=== PATIENT | female | born 1955 | race Caucasian/White ===

== ENCOUNTER 2022-09-30 12:59 | Emergency (ER) | payer MEDICARE, OTHER, SELFPAY ==
--- NOTE | ~2022-09-30 | CT_ITS ---
EXAMINATION: CT ABDOMEN AND PELVIS WITH CONTRAST CLINICAL INFORMATION: Abdominal pain COMPARISON: None available. TECHNIQUE: Multidetector volumetric images were obtained from the superior aspect of the liver through the pubic symphysis following administration 85 mL of Omnipaque 350 intravenous contrast. Sagittal and coronal reformatted images were obtained on the technologist's workstation. Oral contrast: No This CT examination was performed using dose optimization techniques as appropriate, variously including the following: *Automated exposure control *Adjustment of mA and/or kV according to patient size (this includes techniques or standardized protocols for targeted exams where dose is matched to indication/reason for exam; i.e. extremities or head) *Use of iterative reconstruction technique DLP: 382 mGy-cm FINDINGS: LUNG BASES: Unremarkable. ABDOMINAL AND PELVIC WALL: Diastases of the rectus abdominis musculature with a tiny superimposed fat-containing umbilical hernia. LIVER AND BILIARY TREE: Few subcentimeter hepatic hypodensities too small to characterize. No intra or extrahepatic biliary duct dilatation. GALLBLADDER: Unremarkable. PANCREAS: Tiny 4 mm fluid attenuation lesion in the pancreatic neck and a 2.2 cm fluid attenuation lesion exophytic off the tail of the pancreas. No pancreatic duct dilatation or enhancing components. SPLEEN: Unremarkable. ADRENAL GLANDS: Unremarkable. KIDNEYS AND URETERS: Unremarkable. GASTROINTESTINAL TRACT: Colonic diverticulosis without evidence of diverticulitis. Normal appendix. VASCULAR: Unremarkable. LYMPH NODES/PERITONEUM: No lymphadenopathy. FREE FLUID: None. BLADDER: Unremarkable. PELVIC VISCERA: Unremarkable. OSSEOUS STRUCTURES: Unremarkable. CT/CT abdomen pelvis w IV con IMPRESSION: 1. No acute findings to explain symptoms of abdominal pain. 2. Tiny 4 mm fluid attenuation lesion in the pancreatic neck and a 2.2 cm fluid attenuation lesion exophytic off the tail of the pancreas. No pancreatic duct dilatation or enhancing components. Recommend further characterization with MR abdomen with and without contrast. 3. Diastases of the rectus abdominis musculature with a tiny superimposed fat-containing umbilical hernia.
--- NOTE | 2022-09-30 13:12 | ED.GENADULT ---
HPI - General Adult General Chief complaint: Abdominal Pain Stated complaint: nausea/ adb pain/ back pain Time Seen by Provider: 09/30/22 16:38 Source: patient Mode of arrival: ambulatory Limitations: no limitations History of Present Illness HPI narrative: 66 year old female presents from her PCP's office for abdominal pain vomiting for the past three days. She denies any diarrhea. She has had no vomiting today. She states she was sent to get fluids and a CT. She had three C section but no other surgeries. No fever chills cough. She states she wants to get to the bottom of what is going on. She later after physical exam and explaining the plan states she feels a twisting in his abdomen and Onset (ago): day(s) Related Data Allergies Allergy/AdvReac Type Severity Reaction Status Date / Time citalopram [From CELEXA] Allergy Unknown RASH Verified 09/30/22 13:12 Review of Systems Review of Systems: Review of systems: General: Patient denies any fever chills recent illness or falls Musculoskeletal: Denies back pain or body aches or other injuries HEENT: denies headache, runny nose, ear pain Respiratory: denies shortness of breath, cough Cardiovascular: no chest pain or palpitations : denies dysuria, frequency Abdomen: no nausea vomiting denies abdominal pain Extremities: no swelling, no pain Skin: no diaphoresis Yes all other systems are reviewed and are negative PMFSH Social History Social History Advance Directives: No Advance Directives Information Provided: Yes Physical Exam ED Vital Signs: Vital Signs - 24 hr 09/30/22 13:13 09/30/22 16:53 Temperature 97 F Pulse Rate 94 79 Respiratory Rate 16 16 Blood Pressure 114/72 144/68 H Pulse Oximetry 95 96 Oxygen Delivery Method Room Air BMI result Body Mass Index 25.8 General: Well-appearing well-nourished in no signs of distress HEENT: Normocephalic atraumatic Neck: No signs of JVD, no masses no tenderness or lymphadenopathy Cardiovascular: Regular rate and rhythm Respiratory: Clear to auscultation bilaterally Abdomen: Soft nontender no masses Extremities: Normal pedal pulses no signs of edema Skin: Dry warm no rashes Back: No tenderness full ROM Course Course Course Narrative: RME- 66-year-old female presents for evaluation of lower abdominal pain, nausea vomiting. Plan for labs and a UA. She is well-appearing injury a Reevaluation(s) Reevaluation #1: 1850 I explained the of pancreatic cyst and the small umbilical hernia and need for follow up. I don't have a reason for her symptoms today and she didn't want a script for zofran. I will send home. Medications Administered Discontinued Medications Generic Name Dose Route Start Last Admin Trade Name Vamsi PRN Reason Stop Dose Admin Sodium Chloride 1,000 mls @ 999 mls/hr 09/30/22 17:00 09/30/22 18:09 Ns IV 09/30/22 18:00 Infused .Q1H1M ELVIN Infusion Iohexol 100 ml 09/30/22 17:07 09/30/22 17:07 Iohexol 350 Mg/Ml 100 Ml Infus..Btl IV 09/30/22 17:08 85 ml ONCE ONE Administration Ondansetron HCl 4 mg 09/30/22 16:51 09/30/22 17:09 Ondansetron Hcl 4 Mg/2 Ml Vial IVPUSH 09/30/22 16:52 Not Given ONCE ONE Medical Decision Making Medical Decision Making [facility] Narrative: 66 year old female with no more abdominal pain and vomiting that was going on previously. She states she has to get fluids and a CT scan. Patient has a non concerning exam with normal labs since she has been waiting. I explained there is no need for imaging and I could send her home with harpreet for nausea. She states she hasn't vomited today and feels that this is something else and has to know. I again explained a CT would not tell her what is going on. She was adamant that a cT neeeded to be performed cause her doctor said melaniemaged needed one. I ordered a CT Differential Diagnosis Differential Diagnoses: The differential diagnosis associated with the presentation includes Vomiting dehydration abdominal pain unlikely concerning for intra abdominal surgical issue. Admission/Observation Consideration of admission/observation: Escalation of care including admission/observation considered Negative CT and labs admission is not warranted. Lab Data [facility] Lab Attestation statement: I reviewed the patient's lab results. 09/30/22 13:54 09/30/22 13:54 Labs: Lab Results 09/30/22 09/30/22 09/30/22 Range/Units 13:54 13:54 16:45 WBC 6.8 (4.8-10.8) X10*3/uL RBC 4.83 (4.20-5.50) X10*6/uL Hgb 14.1 (12.0-16.0) g/dl Hct 42.3 (37.0-47.0) % MCV 87.6 (80.0-98.0) fL MCH 29.2 (27.0-33.0) pg MCHC 33.3 (31.0-35.0) g/dl RDW 13.3 (11.0-16.0) % Plt Count 243 (160-400) X10*3/uL MPV 11.1 (9.4-12.3) fL Immature Gran % (Auto) 0.1 (0.0-0.4) % Neut % (Auto) 51.0 (45-73) % Lymph % (Auto) 35.7 (20-40) % [place] % (Auto) 10.2 (2-11) % Eos % (Auto) 2.6 (0-4) % Baso % (Auto) 0.4 (0-2) % Lymph # (Auto) 2.4 (1.2-4.9) X10*3/uL [place] # (Auto) 0.7 (0.1-1.2) X10*3/uL Eos # (Auto) 0.2 (0.0-0.4) X10*3/uL Baso # (Auto) 0.0 (0.0-0.2) X10*3/uL Abs Immat Gran (auto) 0.01 (0.00-0.03) X10*3/uL Absolute Neuts (auto) 3.5 (2.0-8.3) x10*3/uL Absolute Nucleated RBC 0.000 (0.0-0.012) X10*3/uL Nucleated RBC % (auto) 0.0 (0.0-0.2) /100WBC Sodium 142 (135-145) mmol/L Potassium 3.7 (3.3-5.1) mmol/L Chloride 104 (96-108) mmol/L Carbon Dioxide 29 (22-29) mmol/L Anion Gap 13 (12-20) BUN 23 H (9-16) mg/dL Creatinine 0.87 (0.5-1.4) mg/dL Estim Creat Clear Calc 50.7 Estimated GFR > 60 Random Glucose 125 H (60-115) mg/dL Calcium 10.0 (8.4-10.2) mg/dL Total Bilirubin 0.8 (0.0-1.0) mg/dL AST 49 H (5-31) U/L ALT 45 H (0-31) U/L Alkaline Phosphatase 95 (39-117) U/L Total Protein 7.1 (6.5-8.0) g/dL Albumin 4.6 (3.5-5.0) g/dL Lipase 35 (8-78) U/L Urine Color Yellow Urine Appearance Clear Urine pH 5.5 (5.0-9.0) Ur Specific Sacul 1.010 (1.005-1.025) Urine Protein Negative (Neg-Trace) mg/dL Urine Glucose (UA) Negative (Negative) mg/dL Urine Ketones Negative (Negative) mg/dL Urine Blood Negative (Negative) Urine Nitrite Negative (Negative) Ur Leukocyte Esterase Trace H (Negative) Urine RBC 0-2 (0-2) /HPF Urine WBC 0-5 (0-5) /HPF Ur Squamous Epith Cells 3-5 (0-2) /HPF Urine Bacteria None Seen (None Seen) Hyaline Casts 0-2 (0-2) /LPF Radiology Impression Discussion of test interpretation with radiology: I have reviewed the radiologist's reading. External Record Review External record reviewed: Inpatient record Discharge Plan Discharge Clinical Impression: Abdominal pain Patient Disposition: Home, Self-Care Instructions: Abdominal Pain (ED) Additional Instructions: You were seen today for vomiting and abdominal pain. You had labs and CT performed which showed non emergent findings of pancreatic cyst that you need to talk to your doctor about for further imaging. You also have a small hernia around your belly button. Please call and follow up with your doctor.
[2022-09-30 13:13] VITALS: BP 114/72; PULSE 94; RESP 16; TEMP 36.1; O2SAT 95; BMI 25.8
--- OUTSIDE RECORDS SUMMARY | 2022-09-30 13:33 | XMS_ITS | Continuity of Care Document ---
Author Name Unknown Organization [facility] ter Address [address] [place] [id number]- Care Team Providers Care Optical Laboratory Manager Name Role Phone Malini AMAYA, Esthela Goodwin Primary Care Physician Encounter [facility] [place] Date(s): 08/07/20 - 10/04/[address] [address]- Attending Physician: Stefan Snowden MD Admitting Physician: Stefan Snowden MD Referring Physician: Stefan Snowden MD Allergies, Adverse Reactions, Alerts Substance Reaction Severity Status Celexa rash Active Immunizations Given and Recorded Vaccine Date Status Refusal Reason influenza virus vaccine, inactivated 01/18/19 Give n influenza virus vaccine, inactivated 1 02/04/17 Re corded influenza virus vaccine, inactivated 2 02/08/16 Re corded influenza virus vaccine, inactivated 03/14/14 Give n influenza virus vaccine, inactivated 03/06/13 Give n tetanus/diphtheria/pertussis, acel(Tdap) 05/25/13 Given Pneumococcal Vaccine (oldterm) 08/17/11 Given FluLaval (oldterm) 02/06/09 Given Hepatitis B Vaccine (old term) 07/06/05 Given 1Location History: work 2Location History: work Medications Alcohol Wipes See Instructions, # 1 box, Refills 5, Tot. Refills 5, Maintenance, use to clean skin before testingblood glucose dx 250.00, 08/20/11 11:23:44 Start Date: 08/20/11 Status: Ordered aspirin 81 mg oral tablet = 81 mg, By Mouth, Daily, # 300 tablet, 0 Refills, Maintenance, 08/05/16 15:13:09, Tablet Start Date: 08/05/16 Status: Ordered Freestyle Glucose Meter See Instructions, # 1 each, Maintenance, use to test blood glucose once daily dx 250.00, 08/28/11 15:04:45 Start Date: 08/28/11 Status: Ordered Freestyle Lancets See Instructions, # 50 each, Refills 5, Tot. Refills 5, Maintenance, [place] [address], 08/28/11 15:04:18 Start Date: 08/28/11 Status: Ordered Freestyle Lite Test Strips See Instructions, # 50 strip(s), Refills 5, Tot. Refills 5, Maintenance, use as directed to test blood sugar 1 x daily dx - E11.9, 09/09/16 14:48:16, Compound Start Date: 09/09/16 Status: Ordered Lancets See Instructions, # 1 box, Refills 1, Tot. Refills 1, Maintenance, DX:E11.9 Test Blood Sugars Daily, 09/09/16 14:59:12, Free Style Lancets, Compound Start Date: 09/09/16 Status: Ordered Problem List Condition Effective Dates Status Health Status Inform ant Allergic rhinitis(Confirmed) Active Sleep-related hypoventilation(Confirmed) Active Diabetes mellitus - adult onset(Confirmed) 1, 2, 3 08/17/11 Active Disorder of iron metabolism(Confirmed) Active Fatty liver(Confirmed) 4, 5, 6 06/10/09 Active FH: Cardiovascular disease(Confirmed) Active FH: Diabetes mellitus(Confirmed) Active Chronic GERD(Confirmed) Active Hyperaldosteronism(Confirmed) 7, 8 Active Hyperlipidemia(Confirmed) 04/16/10 Active Hypersomnia(Confirmed) Active Hypertension(Confirmed) 9, 10 03/28/07 Active Hypertriglyceridemia(Confirmed) 11 Active Hypothyroidism(Confirmed) Active Irritable bowel syndrome(Confirmed) Active Major depression(Confirmed) 12 Active Microscopic hematuria(Confirmed) 13 07/24/09 Active Nephrolithiasis(Confirmed) Active Severe obstructive sleep apnea-hypopnea syndrome(Confirmed) 14, 15 Active Osteoporosis(Confirmed) 04/26/17 Active Overweight(Confirmed) Active Sleep apnea(Confirmed) 16, 17, 18 2009 Active Urinary incontinence(Confirmed) 19 Active Uterine fibroids(Confirmed) Active Vitamin D deficiency(Confirmed) Active 1stopped Trulicity due to cost once got on medicare 2[facility] 3Metformin 1g bid casued too much gas. tolerating 500mg bid 4NAFLD fibrosis score (-0.413) and FIBT-4 score (1.94) are both indeterminate 5Negative hepatitis and iron studies 2013. 6Seen on CT 7Primary Hyperaldo. Placed on aldactone and rest of BP meds needed to be discontinued. 8Following with Renal 9referred to Dr godfrey 10Hypokalemia and nocturia with HCTZ 11over 800 and gemfibrozil started 12Failed trails off meds a few times 13Seen by Dr Castaneda at [facility] 14Bilevel 12/04 15on Bipap and folllowed at [facility] 16followed by sleep medicine and bipap ordered after trial 17retested and has severe apnea and cpap trial ordered 18Mild. had cpap for awhile but returned becuase she was not using 19Seen by Dr Snowden Social History Social History Type Response Smoking Status Former smoker; Other : quit smoking July 26, 1999; Total pack years: 30; Started at age: 13; entered on: 04/02/14 Sex
--- OUTSIDE RECORDS SUMMARY | 2022-09-30 13:33 | XMS_ITS | Continuity of Care Document ---
Author Name Unknown Organization [facility] ter Address [address] [place] [id number]- Care Team Providers Care Bottom Finisher Name Role Phone Esthela Nayak MD Primary Care Physician [place] [facility] [place] 10/04/[address] [address] Attending Physician: Esthela Nayak MD Admitting Physician: Esthela Nayak MD Referring Physician: Esthela Nayak MD Allergies, Adverse Reactions, Alerts Substance Reaction [...] use [place] [address], 08/28/11 15:04:18 Start Date: 08/28/11 Status: Ordered [...] to cost once got on medicare 2[facility]iz [facility] 3Metformin 1g bid casued too [...] few times 13Seen by Dr Castaneda at [facility] 14Bilevel 12/04 15on Bipap and folllowed at [facility] Sleep Medicine 16followed by sleep medicine and [...]
--- OUTSIDE RECORDS SUMMARY | 2022-09-30 13:33 | XMS_ITS | Continuity of Care Document ---
Author Name Unknown Organization [facility] [place] Address [address] [place] [address]- Care Team Providers Care Tower Helper Name Role Phone Esthela Nayak MD Primary Care Physician Encounter 12/07/19 - 12/14/19 [facility] [address], [address] [place] [address]- [phone] Attending Physician: Esthela Nayak MD Admitting Physician: [...] [place] [id number], 08/28/11 15:04:18 Start Date: 08/28/11 Status: Ordered [...] Active Diabetes mellitus - adult onset(Confirmed) 1, 2 08/17/11 Active Disorder of iron metabolism(Confirmed) Active Fatty liver(Confirmed) 3, 4, 5 06/10/09 Active FH: Cardiovascular disease(Confirmed) Active FH: Diabetes mellitus(Confirmed) Active Chronic GERD(Confirmed) Active Hyperaldosteronism(Confirmed) 6, 7 Active Hyperlipidemia(Confirmed) 04/16/10 Active Hypersomnia(Confirmed) Active Hypertension(Confirmed) 8, 9 03/28/07 Active Hypertriglyceridemia(Confirmed) 10 Active Hypothyroidism(Confirmed) Active Irritable bowel syndrome(Confirmed) Active Major depression(Confirmed) 11 Active Microscopic hematuria(Confirmed) 12 07/24/09 Active Nephrolithiasis(Confirmed) Active Severe obstructive sleep apnea-hypopnea syndrome(Confirmed) 13, 14 Active Osteoporosis(Confirmed) 04/26/17 Active Overweight(Confirmed) Active Sleep apnea(Confirmed) 15, 16, 17 2009 Active Urinary incontinence(Confirmed) 18 Active Uterine fibroids(Confirmed) Active Vitamin D deficiency(Confirmed) Active 1[facility] 2Metformin 1g bid casued too much gas. tolerating 500mg bid 3NAFLD fibrosis score (-0.413) and FIBT-4 score (1.94) are both indeterminate 4Negative hepatitis and iron studies 2013. 5Seen on CT 6Primary Hyperaldo. Placed on aldactone and rest of BP meds needed to be discontinued. 7Following with Renal 8referred to Dr godfrey 9Hypokalemia and nocturia with HCTZ 10over 800 and gemfibrozil started 11Failed trails off meds a few times 12Seen by Dr Castaneda at [facility] 13Bilevel 12/04 14on Bipap and folllowed at [facility] 15followed by sleep medicine and bipap ordered after trial 16retested and has severe apnea and cpap trial ordered 17Mild. had cpap for awhile but returned becuase she was not using 18Seen by Dr Snowden Social History Social History Type Response Smoking Status Former smoker; Other : quit smoking July 26, 1999; Total pack years: 30; Started at age: 13; entered on: 04/02/14 Sex
[2022-09-30 14:12] LABS: MANUAL DIFF FLAG NO
[2022-09-30 14:14] LABS: Basophils Percent Auto 0.4 % (0-2); Eosinophils Absolute Auto 0.2 X10*3/uL (0.0-0.4); Eosinophils Percent Auto 2.6 % (0-4); Hematocrit 42.3 % (37.0-47.0); Hemoglobin 14.1 g/dl (12.0-16.0); Imm Gran Abs Auto 0.01 X10*3/uL (0.00-0.03); Imm Gran Pct Auto 0.1 % (0.0-0.4); Lymphocytes Absolute Auto 2.4 X10*3/uL (1.2-4.9); Lymphocytes Percent Auto 35.7 % (20-40); Mean Corpuscular HGB Conc 33.3 g/dl (31.0-35.0); Mean Corpuscular Hemoglobin 29.2 pg (27.0-33.0); Mean Corpuscular Volume 87.6 fL (80.0-98.0); Mean Platelet Volume 11.1 fL (9.4-12.3); Monocytes Absolute Auto 0.7 X10*3/uL (0.1-1.2); Monocytes Percent Auto 10.2 % (2-11); Neutrophils Absolute Auto 3.5 x10*3/uL (2.0-8.3); Platelet Count 243 X10*3/uL (160-400); Red Blood Count 4.83 X10*6/uL (4.20-5.50); Red Cell Distribution Width 13.3 % (11.0-16.0); White Blood Count 6.8 X10*3/uL (4.8-10.8)
[2022-09-30 14:31] LABS: Alanine Aminotransferase 45 U/L (0-31); Albumin Level 4.6 g/dL (3.5-5.0); Alkaline Phosphatase 95 U/L (39-117); Anion Gap 13 (12-20); Aspartate Amino Transferase 49 U/L (5-31); Bilirubin Total 0.8 mg/dL (0.0-1.0); Blood Urea Nitrogen 23 mg/dL (9-16); Carbon Dioxide 29 mmol/L (22-29); Chloride 104 mmol/L (96-108); Creatinine Clr Calc Pharmacy 50.7; Estimated Glomerular Filt Rate > 60; Glucose Random 125 mg/dL (60-115); Lipase 35 U/L (8-78); Potassium 3.7 mmol/L (3.3-5.1); Sodium 142 mmol/L (135-145); Total Protein 7.1 g/dL (6.5-8.0)
[2022-09-30 16:52] LABS: Appearance Urine Clear; Color Urine Yellow; Glucose Urine UA Negative (Negative); Leukocyte Esterase Urine Trace (Negative); Nitrite Urine Negative (Negative); PH 5.5 (5.0-9.0); UMIC TRIGGER UACC YES; Urine Blood Negative (Negative); Urine Ketones Negative (Negative); Urine Protein Negative (Neg-Trace)
[2022-09-30 16:53] VITALS: BP 144/68; PULSE 79; RESP 16; O2SAT 96
[2022-09-30 16:54] LABS: Bacteria Urine None Seen (None Seen); Hyaline Casts Urine 0-2 /LPF (0-2); RBC Urine 0-2 /HPF (0-2); WBC Urine 0-5 /HPF (0-5)
[2022-09-30] MEDS: iohexoL 350 MG/ML 100 ML INFUS..BTL IV (17:07)
[2022-09-30] MEDS: 0.9 % Sodium Chloride 1,000 ML 999 ML IV (17:09)
== END 2022-09-30 19:17 | disposition home or self-care (01) ==
PROVIDERS: Physician Assistant; Emergency Provider Student in an Organized Health Care Education/Training Program; PCP Internal Medicine
DX: R10.9 Unspecified abdominal pain (principal)
CPT/HCPCS: 36415; 74177; 80053; 81001; 83690; 85025; 96361; 96374; 99284; Q9967

== ENCOUNTER 2023-08-05 13:49 | Outpatient (AMB) | payer MEDICARE, OTHER, SELFPAY ==
[2023-08-05 13:55] VITALS: BP 156/75; PULSE 76; BMI 25.8
--- NOTE | 2023-08-05 13:55 | A.OFFVIS_ITS ---
Vital Signs 08/05/23 13:55 Height 5 ft Weight 132 lb 4.438 oz BMI 25.8 BP 156/75 H Blood Pressure Location Rt brachial Position Sitting Pulse 76 Intake Visit Reasons: abd pain, colon screen Intake Note: Ragini presents to in office visit today for abdominal pain and a colonoscopy screening. CC: Patient c/o LLQ abdominal pain, constipation, nausea, and acid reflux w/heartburn. Denies other GI symptoms today. Spray Gunner Required: No Accompanied by: Self / Same As Patient Allergies citalopram [From CELEXA] Allergy (Unknown, Verified 08/05/23 14:01) RASH HPI HPI abd pain, colon screen: Details: 67-year-old female with past medical history of diabetes, hypertension, hyperlipidemia, hypothyroidism is here today for initial consultation. Patient was sent to us by her PCP. Patient in the past was seen by GI specialist in [place], colonoscopies were done here at [facility] and patient would like to stay here. Patient's saw her PCP on July 29, complaint of chest pressure and heaviness, ST changes were seen on EKG and patient was sent to ER. Patient reports that she just finished treatment for shingles and is still having pain to her left side of her abdomen. Patient reports constipation and diarrhea. Patient states that she has stools and then she will have no bowel movement for couple days. Patient states that she is unable to empty her bowels completely. Feels like no most no metal what she eats she has epigastric discomfort, dyspepsia without dysphagia or odynophagia. Patient is is on pantoprazole and does not feel like it is working. Patient reports feeling nauseous in the morning and sometimes throughout the day. Patient also reports left lower quadrant pain COUNT INCLUDES THE [facility] Medical History (Updated 08/15/23 @ 16:[address] [facility]) Hypothyroidism (acquired) Hyperlipidemia HTN (hypertension) Diabetes mellitus Surgical History H/O section H/O colonoscopy Family History Father Bladder cancer Social History Alcohol intake: never Patient Tobacco Use Status: Former Tobacco user Quit Date: 24 years ago Review of Systems Const Denies weight gain and Denies weight loss ENT Reports no additional complaints, Denies dysphagia and Denies odynophagia Card Reports no additional complaints Resp Reports no additional complaints GI Reports abdominal pain (LLQ), Denies belching, Denies melena, Reports bloating, Denies change in bowel habits, Reports constipation, Denies dysphagia, Denies excessive flatus, Denies dyspepsia, Denies heartburn, Denies diarrhea, Reports loose stools, Reports nausea, Denies odynophagia and Denies vomiting Reports no additional complaints Musc Reports no additional complaints Neuro Reports no additional complaints Psych Reports no additional complaints Endo Reports no additional complaints Physical Exam Vital Signs: Last Vital Signs Pulse 76 08/05/23 13:55 BP 156/75 H 08/05/23 13:55 BMI result Body Mass Index 25.8 Const General: healthy appearing, no acute distress and well developed Nutritional Appearance: well nourished Orientation/consciousness: patient oriented x3 Resp Effort & Inspection: normal respiratory effort, able to speak in complete sentences, no tracheal deviation and symmetric chest movement Auscultation: clear to auscultation bilaterally Cardio Rate: regular rate GI Inspection: Yes normal to inspection and No distended Palpation (GI): Soft to palpation, not firm, nontender and No hepatosplenomegaly present Auscultation: normal bowel sounds General: Yes no CVA tenderness Back/Spine/Pelvis Back: no CVA tenderness Skin General skin exam: elasticity normal, turgor normal and dry skin Neuro General: patient oriented x3 Psych Appearance: grossly normal Mental Status: mental status grossly normal Assessment & Plan Assessment & Plan (1) GERD (gastroesophageal reflux disease): Code(s): K21.9 - Gastro-esophageal reflux disease without esophagitis Qualifiers: Esophagitis presence: esophagitis presence not specified Qualified Code(s): K21.9 - Gastro-esophageal reflux disease without esophagitis (2) Postprandial abdominal bloating: Code(s): R14.0 - Abdominal distension (gaseous) (3) Constipation: Code(s): K59.00 - Constipation, unspecified Qualifiers: Constipation type: slow transit constipation Qualified Code(s): K59.01 - Slow transit constipation (4) Abdominal pain: Code(s): R10.9 - Unspecified abdominal pain Qualifiers: Abdominal location: generalized Qualified Code(s): R10.84 - Generalized abdominal pain (5) Postprandial epigastric pain: Code(s): R10.13 - Epigastric pain Plan Will rule out celiac, malabsorption issues, H pylori. Will treat empirically if positive. Will check vitamin-D, B12 and folate. Will check lipase. Patient does have pain in the left upper quadrant from time to time, rule out chronic pancreatitis. Patient will stop pantoprazole and start Nexium. Patient can take famotidine at bedtime. Will start her on Citrucel. Patient will take Senokot daily to her per eliminate her bowels better. Patient will return in 3 months, sooner on as needed basis. Patient is agreeable to this plan and verbalizes understanding of instructions. She was given the opportunity to ask questions and all questions answered. Thank you for allowing me to participate in her care Orders: Orders H pylori Ag Stool 08/06/23 K21.9 - Gastro-esophageal reflux disease without e sophagitis Vitamin D 25-OH (D2 and D3) 08/05/23 E55.9 - Vitamin D deficiency, unspecified Transglutaminase Ab IgG 08/05/23 R10.9 - Unspecified abdominal pain Vitamin B12 and Folate 08/05/23 R19.7 - Diarrhea, unspecified Transglutaminase IgA 08/05/23 R10.9 - Unspecified abdominal pain Lipase 08/05/23 R10.9 - Unspecified abdominal pain Medications: New methylcellulose (laxative) (Citrucel) 500 mg PO DAILY 30 tabs 2RF K59.00 - Constipation, unspecified sennosides (Natural Senna Laxative) 17.2 mg (2 x 8.6 mg) PO BEDTIME 60 tabs 3RF constipation K59.00 - Constipation, unspecified esomeprazole magnesium (Nexium) 40 mg PO DAILY 30 caps 5RF K21.9 - Gastro- esophageal reflux disease without esophagitis famotidine (Pepcid) 20 mg PO BEDTIME 30 tabs 3RF K21.9 - Gastro-esophageal reflux disease without esophagitis
== END 2023-08-05 14:34 | disposition home or self-care (01) ==
PROVIDERS: PCP Internal Medicine; Referring Provider Internal Medicine; Visit Provider Nurse Practitioner Family
DX: K21.9 Gastro-esophageal reflux disease without esophagitis (principal); R14.0 Abdominal distension (gaseous); K59.01 Slow transit constipation; R10.84 Generalized abdominal pain; R10.13 Epigastric pain
CPT/HCPCS: 99204

== ENCOUNTER 2023-08-05 13:49 | Outpatient (REF) | payer MEDICARE, OTHER, SELFPAY ==
[2023-08-05 15:47] LABS: Lipase 36 U/L (8-78)
[2023-08-05 16:23] LABS: Folate 10.5 ng/mL (> or = 4.0); Vitamin B12 852 pg/mL (200-900)
[2023-08-06 21:05] LABS: Transglutaminase Ab IgG <1.0 U/mL; Transglutaminase IgA <1.0 U/mL
[2023-08-09 15:28] LABS: Vitamin D 25-OH, D2 <4 ng/mL; Vitamin D 25-OH, D3 19 ng/mL; Vitamin D 25-OH, Total 19 ng/mL (30-100)
== END 2023-08-05 13:50 | disposition home or self-care (01) ==
LOC: HO.LAB 13:49
PROVIDERS: PCP Internal Medicine; Referring Provider Internal Medicine; Visit Provider Nurse Practitioner Family
DX: E55.9 Vitamin D deficiency, unspecified (principal); E78.5 Hyperlipidemia, unspecified; E03.9 Hypothyroidism, unspecified; K21.9 Gastro-esophageal reflux disease without esophagitis; R14.0 Abdominal distension (gaseous); K59.01 Slow transit constipation; R10.84 Generalized abdominal pain; R10.13 Epigastric pain; R19.7 Diarrhea, unspecified; K59.00 Constipation, unspecified
CPT/HCPCS: 36415; 82306; 82607; 82746; 83690; 86364; 99202

== ENCOUNTER 2023-08-06 12:21 | Outpatient (REF) | payer MEDICARE, OTHER, SELFPAY | END 2023-08-06 12:22 | disposition home or self-care (01) | LOC: HO.LNP 12:21 | PROVIDERS: Visit Provider Nurse Practitioner Family | DX: K21.9 Gastro-esophageal reflux disease without esophagitis (principal) | CPT/HCPCS: 87338 ==

== ENCOUNTER 2024-01-26 10:46 | Outpatient (AMB) | payer MEDICARE, OTHER, SELFPAY ==
[2024-01-26 10:53] VITALS: BP 120/58; PULSE 78; O2SAT 97; BMI 25.9
--- NOTE | 2024-01-26 10:53 | A.OFFVIS_ITS ---
Vital Signs 01/26/24 10:53 Height 5 ft Weight 132 lb 11.492 oz BMI 25.9 BP 120/58 L Blood Pressure Location Lt brachial Position Sitting Pulse 78 Pulse Source Pulse Oximeter Pulse Oximetry (%) 97 Oxygen Delivery Method Room Air Intake Visit Reasons: r/s from 11/02 Intake Note: Ragini presents in office today for a scheduled FUV. CC: Mary Grace was rx'd Citrucel, esomperazole, and famotidine at her last visit. Pt has also had lab work performed since her last visit as of July 2023. Pt reports that they are improved since their last visit, however; they still find that they are having difficulty with emptying their bowels completely. Pt reports that they have been doing well with their new rxs as intended, no complications at this point. Pt does still take citrucel (OTC), but feels that they could have a better therapeutic response. LLQ also reported, possibly related to their difficulties with emptying. Apartment Groundskeeper Required: No Allergies citalopram [From [employer]] Allergy (Unknown, Verified 01/26/24 10:54) RASH HPI HPI r/s from 11/02: Details: LAST VISIT: GERD (gastroesophageal reflux disease) Postprandial abdominal bloating Constipation Abdominal pain Postprandial epigastric pain Plan Will rule out celiac, malabsorption issues, H pylori. Will treat empirically if positive. Will check vitamin-D, B12 and folate. Will check lipase. Patient does have pain in the left upper quadrant from time to time, rule out chronic pancreatitis. Patient will stop pantoprazole and start Nexium. Patient can take famotidine at bedtime. Will start her on Citrucel. Patient will take Senokot daily to her per eliminate her bowels better. Patient will return in 3 months, sooner on as needed basis. Patient is agreeable to this plan and verbalizes understanding of instructions. She was given the opportunity to ask questions and all questions answered. ? Thank you for allowing me to participate in her care Orders Orders H pylori Ag Stool 08/06/23 K21.9 Vitamin D 25-OH (D2 and D3) 08/05/23 E55.9 Transglutaminase Ab IgG 08/05/23 R10.9 Vitamin B12 and Folate 08/05/23 R19.7 Transglutaminase IgA 08/05/23 R10.9 Lipase 08/05/23 R10.9 Medications New methylcellulose (laxative) (Citrucel) 500 mg PO DAILY 30 tabs 2RF K59.00 sennosides (Natural Senna Laxative) 17.2 mg (2 x 8.6 mg) PO BEDTIME 60 tabs 3RF constipation K59.00 esomeprazole magnesium (Nexium) 40 mg PO DAILY 30 caps 5RF K21.9 famotidine (Pepcid) 20 mg PO BEDTIME 30 tabs 3RF K21.9 TODAY'S VISIT: Patient is here today for follow-up and to discuss going for colonoscopy. Patient reports that she is doing better, however she continues to feel like she is not emptying her bowels completely. Patient reports that as omeprazole and famotidine have been helping her. Patient states that she is having less acid reflux, however depending on what she is eating she might have reflux. Patient denies eating late at night. H pylori was negative. Patient had normal lab work except for low vitamin-D which she has been taking supplements since July. [place] end of June beginning of July and she would like to have the procedure scheduled then. Patient reports occasional left lower quadrant pain, however states that that could be related possibly to her not feeling like she is emptying completely. Patient denies melena, hematochezia, unintentional weight loss or ribbon like stools. Currently is taking fiber. Patient denies dyspepsia, dysphagia or odynophagia. [facility] Medical History Hypothyroidism (acquired) Hyperlipidemia HTN (hypertension) Diabetes mellitus Surgical History H/O section H/O colonoscopy Family History Father Bladder cancer Social History Alcohol intake: never Patient Tobacco Use Status: Former Tobacco user Physical Exam Vital Signs: Last Vital Signs Pulse 78 01/26/24 10:53 BP 120/58 L 01/26/24 10:53 Pulse Ox 97 01/26/24 10:53 Oxygen Delivery Method Room Air 01/26/24 10:53 BMI result Body Mass Index 25.9 Results Reviewed Results Reviewed: Laboratory Tests 08/05/23 14:50 Lipase 36 Vitamin B12 852 25-OH Vitamin D Total 19 L Folate 10.5 Tiss Transglutamin IgG <1.0 Tiss Transglutamin IgA <1.0 Assessment & Plan Assessment & Plan (1) GERD (gastroesophageal reflux disease): Code(s): K21.9 - Gastro-esophageal reflux disease without esophagitis Qualifiers: Esophagitis presence: esophagitis presence not specified Qualified Code (s): K21.9 - Gastro-esophageal reflux disease without esophagitis (2) Postprandial abdominal bloating: Code(s): R14.0 - Abdominal distension (gaseous) (3) Constipation: Code(s): K59.00 - Constipation, unspecified Qualifiers: Constipation type: slow transit constipation Qualified Code(s): K59.01 - Slow transit constipation (4) Abdominal pain: Code(s): R10.9 - Unspecified abdominal pain Qualifiers: Abdominal location: left lower quadrant Qualified Code(s): R10.32 - Left lower quadrant pain (5) Postprandial epigastric pain: Code(s): R10.13 - Epigastric pain Plan Patient can start taking senna daily. Continue taking fiber supplement and increase fluid intake and activity to promote better bowel motility. Patient can continue taking Nexium and famotidine. Avoid dietary triggers and late night snacking. Staying upright for minimum 3 hours after meals discussed with patient. Patient will go for upper endoscopy and colonoscopy. I will see her after the procedure. Patient denies any cardiac or respiratory symptoms. No issues with anesthesia in the past. Patient is on low-dose aspirin. No history of sleep apnea. Discussed with patient the importance of good bowel prep day before procedure. Stressed the importance of clear liquid diet and finishing all of her prep in order for her to have a good outcome. I will see patient after the procedure, sooner on as needed basis. She is agreeable to this plan and verbalizes understanding of instructions. She was given the opportunity to ask questions and all questions answered. Thank you for allowing me to participate in her care Medications: New sennosides (Natural Senna Laxative) 17.2 mg (2 x 8.6 mg) PO BEDTIME 180 tabs 3RF constipation K59.00 - Constipation, unspecified bisacodyl (Dulcolax (bisacodyl)) take 4 tabs at noon the day before your colonoscopy 20 mg (4 x 5 mg) PO ONCE 4 tabs 0RF 1 day Z12.11 - Encounter for screening for malignant neoplasm of colon polyethylene glycol 3350 (Miralax) As directed by gastroenterology department at [facility] 238 grams PO ONCE 238 grams 0RF Z12.11 - Encounter for screening for malignant neoplasm of colon Refilled famotidine (Pepcid) 20 mg PO BEDTIME 90 tabs 3RF K21.9 - Gastro-esophageal reflux disease without esophagitis esomeprazole magnesium (Nexium) 40 mg PO DAILY 90 caps 5RF K21.9 - Gastro- esophageal reflux disease without esophagitis Discontinued bisacodyl Discontinued Reason: Doctor's Order 10 mg (2 x 5 mg) PO BEDTIME 60 tabs 4RF Coding Level of Care Code Est Pt Level 4 (70659) Diagnoses Gastroesophageal reflux disease, unspecified whether esophagitis present K21.9 Esophagitis presence: esophagitis presence not specified Postprandial abdominal bloating R14.0 Slow transit constipation K59.01 Constipation type: slow transit constipation Left lower quadrant abdominal pain R10.32 Abdominal location: left lower quadrant Postprandial epigastric pain R10.13 Time Spent (min) 35 Comment 20 minutes spent with patient and additional 15 minutes spent reviewing her records
== END 2024-01-26 11:39 | disposition home or self-care (01) ==
PROVIDERS: PCP Internal Medicine; Visit Provider Nurse Practitioner Family
DX: K21.9 Gastro-esophageal reflux disease without esophagitis (principal); R14.0 Abdominal distension (gaseous); K59.01 Slow transit constipation; R10.32 Left lower quadrant pain; R10.13 Epigastric pain
CPT/HCPCS: 99214

== ENCOUNTER → 2024-01-26 10:46 | Outpatient (BNVA) | payer MEDICARE, OTHER, SELFPAY | PROVIDERS: PCP Internal Medicine; Visit Provider Nurse Practitioner Family | DX: K21.9 Gastro-esophageal reflux disease without esophagitis (principal); R14.0 Abdominal distension (gaseous); K59.01 Slow transit constipation; R10.32 Left lower quadrant pain; R10.13 Epigastric pain | CPT/HCPCS: 99212 ==

== ENCOUNTER 2024-10-06 10:06 | Day surgery (SDC) | payer MEDICARE, OTHER, SELFPAY ==
--- OUTSIDE RECORDS SUMMARY | 2024-10-04 17:25 | XMS_ITS | Encounter Summary ---
Author Organization [facility] Address [address] [place] [address] Care Team Providers Care Kiln Stacker Name Role Phone Esthela Nayak Primary Care Provider [phone] Reason for Visit * Reason Onset Date Comments PAC Surgery/procedure Scheduling 12/09/2022 Encounter Details Date Type Department Care Team (Late st Contact Info) Description 12/09/2022 Telephone [facility] Endoscopy [address], [place] [id number] Telephone Intake, Staff PAC Surgery/procedure Scheduling Social History Tobacco Use Types Packs/Day Years Used Date Smoking Tobacco: Never Assessed Comments Unknown Sex and Gender Information Value Date Recorded Sex Assigned at Female 12/30/2022 9:45 AM EDT Legal Sex Female 8:56 AM EDT Gender Identity Female 12/30/2022 9:45 AM EDT Sexual Orientation Straight 12/30/2022 9: 45 AM EDT documented as of this encounter Miscellaneous Notes * Telephone Encounter - Dileep Blue - 12/09/2022 4:34 PM EDT Referral scanned in system. Please review * Telephone Encounter - Deloris Alvarado - 12/09/2022 4:32 PM EDT Patient scheduling for Pancreatic cyst DT directs to send TE to endo pls call patient to schedule. documented in this encounter Plan of Treatment Not on file documented as of this encounter Visit Diagnoses Not on filedocumented in this encounter Care Teams Kiln Stacker Relationship Specialty Start Date End Date SkylergibranEsthela [address] [place] [address] PCP - General Internal Medicine 12/09/22 documented as of this encounter
[2024-10-06 10:21] VITALS: BMI 25.9
[2024-10-06 10:33] VITALS: BP 106/48; PULSE 76; RESP 16; TEMP 36.2; O2SAT 96
--- NOTE | 2024-10-06 10:35 | HO.ANESPROP2 ---
Documented by User: Monique An NP 10/17/24 14:23 HPI - Anesthesia Eval Consult details Narrative: 68yo F for Upper Endoscopy and Colonoscopy Severe BRE PMFSH Past Medical History Medical History (Updated 07/27/24 @ 08:56 by Francisca Mack, RN) COVID-19 Vitamin D deficiency Uterine fibroid Urinary incontinence Tobacco abuse Severe obstructive sleep apnea-hypopnea syndrome Sleep apnea RBBB Osteoporosis Obesity Nephrolithiasis LVH (left ventricular hypertrophy) Microscopic hematuria Depression IBS (irritable bowel syndrome) IPMN (intraductal papillary mucinous neoplasm) Thyroid disease Hypersomnia Hyperaldosteronism Fatty liver Disorder of iron metabolism GERD (gastroesophageal reflux disease) Anemia Abnormal liver function Hypothyroidism (acquired) Hyperlipidemia HTN (hypertension) Diabetes mellitus Family History Family History Father Bladder cancer Surgical History Surgical History (Updated 07/27/24 @ 08:54 by Francisca Mack RN) History of esophagogastroduodenoscopy (EGD) H/O section H/O colonoscopy Social History Social History Alcohol intake: never Patient Tobacco Use Status: Former Tobacco user Second Hand Smoke Exposure: No Meds Allergies Allergy/AdvReac Type Severity Reaction Status Date / Time citalopram (From [facility]) Allergy Unknown RASH Verified 01/26/24 10:54 Home Medications ?Medication ?Instructions ?Recorded ?Confirmed ?Last Taken ?Type aspirin 81 mg tablet,delayed 81 mg PO DAILY 08/05/23 10/06/24 Unknown History release atorvastatin 40 mg tablet 40 mg PO DAILY 08/05/23 10/06/24 Unknown History gabapentin 100 mg capsule 100 mg PO TID 08/05/23 10/06/24 Unknown History lisinopril 40 mg tablet 40 mg PO DAILY 08/05/23 10/06/24 Unknown History amlodipine 10 mg tablet 10 mg PO DAILY 01/26/24 10/06/24 Unknown History levothyroxine 75 mcg tablet 75 mcg PO DAILY 01/26/24 10/06/24 Unknown History pioglitazone 15 mg tablet 15 mg PO DAILY 01/26/24 10/06/24 Unknown History sertraline 50 mg tablet 100 mg PO DAILY 01/26/24 10/06/24 Unknown History Exam Narrative Narrative: EKG 08/2024 Ventricular Rate: 76 BPM Atrial Rate: 76 BPM P-R Interval: 158 ms QRS Duration: 78 ms Q-T Interval: 400 ms QTC Calculation(Bazett): 450 ms P Maize: 13 degrees R Maize: -20 degrees T Maize: 21 degrees Normal sinus rhythm Minimal voltage criteria for LVH, may be normal variant Inferior infarct (cited on or before 15-Oct-2020) Abnormal ECG When compared with ECG of 30-Jul-2023 16:42, Right bundle branch block is no longer Present Confirmed by JOSE KEE MD ([id number]) on 08/24/2024 12:10:41 PM Assessment and Plan Assessment Anesthesia Assessment: Chart Reviewed Documented by User: Mia Perry DO 10/18/24 13:59 [facility] Past Medical History Medical History (Updated 07/27/24 @ 08:56 by Farncisca Mack, RN) COVID-19 Vitamin D deficiency Uterine fibroid Urinary incontinence Tobacco abuse Severe obstructive sleep apnea-hypopnea syndrome Sleep apnea RBBB Osteoporosis Obesity Nephrolithiasis LVH (left ventricular hypertrophy) Microscopic hematuria Depression IBS (irritable bowel syndrome) IPMN (intraductal papillary mucinous neoplasm) Thyroid disease Hypersomnia Hyperaldosteronism Fatty liver Disorder of iron metabolism GERD (gastroesophageal reflux disease) Anemia Abnormal liver function Hypothyroidism (acquired) Hyperlipidemia HTN (hypertension) Diabetes mellitus Family History Family History Father Bladder cancer Family history of problems with anesthesia: No Surgical History Surgical History (Updated 07/27/24 @ 08:54 by Francisca Mack, RN) History of esophagogastroduodenoscopy (EGD) H/O section H/O colonoscopy History of Problems with Anesthesia: No Social History Social History Alcohol intake: never Patient Tobacco Use Status: Former Tobacco user Second Hand Smoke Exposure: No Meds Allergies Allergy/AdvReac Type Severity Reaction Status Date / Time citalopram (From [facility]LEXA) Allergy Unknown RASH Verified 01/26/24 10:54 Home Medications ?Medication ?Instructions ?Recorded ?Confirmed ?Last Taken ?Type aspirin 81 mg tablet,delayed 81 mg PO DAILY 08/05/23 10/06/24 Unknown History release atorvastatin 40 mg tablet 40 mg PO DAILY 08/05/23 10/06/24 Unknown History gabapentin 100 mg capsule 100 mg PO TID 08/05/23 10/06/24 Unknown History lisinopril 40 mg tablet 40 mg PO DAILY 08/05/23 10/06/24 Unknown History amlodipine 10 mg tablet 10 mg PO DAILY 01/26/24 10/06/24 Unknown History levothyroxine 75 mcg tablet 75 mcg PO DAILY 01/26/24 10/06/24 Unknown History pioglitazone 15 mg tablet 15 mg PO DAILY 01/26/24 10/06/24 Unknown History sertraline 50 mg tablet 100 mg PO DAILY 01/26/24 10/06/24 Unknown History Exam Airway Mallampati Class: II TM Dist: >3cm Neck ROM: Full Heart: S1S2 Lungs: CTAB Assessment and Plan Assessment Anesthesia Assessment: Anesthesia Plan Discussed and Chart Reviewed Final Anesthetic Review Family History of Problems with Anesthesia: No History of Problems with Anesthesia: No NPO: Yes ASA Class: III Final Preanesthetic Review: No Changes in Pt Med Stat, Meds/Allgs Chart Reviewed, Consent Obtained/Reviewed and Anes Risks/Benef Reviewed Patient Risk: Low Procedure Risk: Low Anesthetic Plan Anesthetic Plan: MAC: and Agree w/ Assess. and Plan Disposition: Standard PACU
[2024-10-06] MEDS: Lactated Ringers 1,000 ML 100 ML IVCONT (10:39)
--- NOTE | 2024-10-06 10:52 | MHC.SHP ---
Pre-Procedural Eval Section A - 24 Hr Update-Section A only Date of Service: 10/06/24 Section B - Complete if H&P > 30 days Chief Complaint: gerd,Hx of polyps Details of Present Illness: Hypothyroidism (acquired) Hyperlipidemia HTN (hypertension) Diabetes mellitus Surgical History H/O section H/O colonoscopy Present Medications: see Short Stay Collaborative assessment Allergies: Allergies Allergy/AdvReac Type Severity Reaction Status Date / Time citalopram [From [employer]] Allergy Unknown RASH Verified 01/26/24 10:54 Review of Systems Review of Systems Comment: Ten point ROS negative Exam Exam Comment: Gen appear: No acute distress HEENT: no icterus Chest: No overt resp distress Abd: soft, nontender, nondistended Psych: Stable affect, answering questions appropriately Neuro: A/Ox3 noted to move all extremities spontaneously Ext: no peripheral edema Plan Diagnosis/Plan: Unchanged I have reviewed the history and physical and performed a pertinent physical examination on my patient. No changes have occurred unless specified. Time Spent With Patient Time: Total time managing care of this patient today ____ minutes.
[2024-10-06 12:14] VITALS: BP 134/68; PULSE 77; RESP 18; TEMP 36.5; O2SAT 99
--- NOTE | 2024-10-06 12:19 | P.OPN-COLO_ITS ---
Colonoscopy Operative Note Operative Note Date of Service: 10/06/24 Narrative: Procedure: Upper endoscopy and colonoscopy Indication: GERD, screening Endoscopist: Carmencita Birmingham MD Anesthesia Provider: Dr Mia Perry Anesthesia type: MAC Instrument: [id number] and [id number] EGD Procedure:?? The procedure, indications, preparation and potential complications were reviewed with the patient, who indicated understanding and gave written informed consent to proceed. The endoscope was introduced through the mouth, and advanced to the 2nd part of the duodenum. The mucosa was carefully examined on slow withdrawal of the endoscope. The patient tolerated the procedure well. There were no immediate complications.? EGD Findings:? * Esophagus:? Normal esophageal mucosa was noted. The Z-line was at 36 cm. * Stomach:? Erythema and erosions in the antrum. Retroflexion was performed in the cardia. Random cold forceps biopsies were taken from the stomach. * Duodenum:? Mild erythema and edema in duodenal bulb. Cold forceps biopsies were taken from the duodenal bulb and 2nd portion of the duodenum to rule out celiac sprue. Colonoscopy Procedure:? The patient was then turned for the colonoscopy. A digital rectal exam was performed which was abnormal for external hemorrhoids.? A distal attachment cap was affixed to the tip of the scope and the colonoscope was then inserted through the anus and advanced through the colon and advanced to the cecum at 80 cm and terminal ileum.? Appendiceal orifice and ileocecal valve were identified. Mucosa was carefully examined under high definition white light as the instrument was slowly withdrawn in a retrograde panoramic fashion. Retroflexion was performed in rectum. The procedure was not difficult. The quality of the prep was BBPS: 2+2+2 = adequate Withdrawal time 11 minutes Limitations: No limitations Findings: Mucosa: Normal colon and terminal ileum mucosa. Protruding lesions: * One sessile polyp of size 2 mm in transverse colon. Cold forceps polypectomy was performed. The polyp was completely removed and retrieved. * One sessile polyp of size 6 mm in transverse colon. Cold snare polypectomy was performed. The polyp was completely removed and retrieved. * One sessile polyp of size 4 mm in sigmoid colon. Cold snare polypectomy was performed. The polyp was completely removed but not retrieved. * Large internal hemorrhoids without stigmata of recent bleeding. Impression: 1. Normal esophagus 2. Gastritis (biopsy) 3. Duodenitis (biopsy) 4. Normal colon and terminal ileum mucosa 5. Total 3 polyps removed (2 retrieved) 6. Internal and external hemorrhoids Recommendations:?? * Follow-up path results * Avoid NSAIDs * H Pylori treatment if biopsies + * Continue esomeprazole * Repeat colonoscopy in 5 years.
[2024-10-06 12:25] VITALS: BP 143/47; PULSE 71; RESP 16; O2SAT 97
[2024-10-06 12:40] VITALS: BP 137/53; PULSE 75; RESP 16; TEMP 36.2; O2SAT 96
== END 2024-10-06 14:36 | disposition home or self-care (01) ==
PROVIDERS: PCP Internal Medicine; Visit Provider Internal Medicine
PROC: (CPT 45385; principal; 2024-10-06 11:30)
DX: Z12.11 Encounter for screening for malignant neoplasm of colon (principal); Z86.0101 Personal history of adenomatous and serrated colon polyps; D12.2 Benign neoplasm of ascending colon; K63.5 Polyp of colon; K64.8 Other hemorrhoids; K64.4 Residual hemorrhoidal skin tags; K59.01 Slow transit constipation; R14.0 Abdominal distension (gaseous); R10.32 Left lower quadrant pain; K21.9 Gastro-esophageal reflux disease without esophagitis; K29.50 Unspecified chronic gastritis without bleeding; K29.80 Duodenitis without bleeding; I10 Essential (primary) hypertension; E78.5 Hyperlipidemia, unspecified; E03.9 Hypothyroidism, unspecified; E11.9 Type 2 diabetes mellitus without complications; G47.33 Obstructive sleep apnea (adult) (pediatric); Z79.82 Long term (current) use of aspirin; Z79.84 Long term (current) use of oral hypoglycemic drugs; Z79.899 Other long term (current) drug therapy; Z87.891 Personal history of nicotine dependence; Z88.8 Allergy status to other drugs, medicaments and biological substances
CPT/HCPCS: 45385; 45380; 43239; 88305; 88313; 88342; J2003; J2704

== ENCOUNTER → 2024-10-06 10:06 | Outpatient (BNV) | payer MEDICARE, OTHER, SELFPAY | PROVIDERS: PCP Internal Medicine; Visit Provider Internal Medicine | DX: Z12.11 Encounter for screening for malignant neoplasm of colon (principal); D12.3 Benign neoplasm of transverse colon; D12.5 Benign neoplasm of sigmoid colon; K64.8 Other hemorrhoids; K21.9 Gastro-esophageal reflux disease without esophagitis; K29.70 Gastritis, unspecified, without bleeding; K29.80 Duodenitis without bleeding | CPT/HCPCS: 43239; 45385 ==

== ENCOUNTER 2024-10-30 14:59 | Outpatient (AMB) | payer MEDICARE, OTHER, SELFPAY ==
--- OUTSIDE RECORDS SUMMARY | 2023-05-18 05:30 | XMS_ITS ---
Author Organization [facility] foley Billing Info Address [address] [place] [id number] Care Team Providers Care Branch Operation Evaluation Manager Name Role Phone JIM MONIQUE Primary Care Provider [phone] LEIF BAE Unavailable [phone] WHIT LOMBARDI Unavailable [phone] Allergies No Known Allergies Reason For Referral Reason Patient requesting i nspire implantable device Has been seen by [facility] sleep lab please eval and tx Patient non compliant with cpap Diagnosis 1 Obstructive sleep ap giselle (G47.33) Referral Organization [id number] [facility] Referring Provider First Name WHIT Referring Provider Last Name MARIA C Referring Provider Speciality [facility] clemente Referred Provider [facility], [facility] Referred Provider Specialty Sleep Medici ne General Notes LAURA MCINTYRE 0 05/19/2023 08:35:51 AM > PLEASE CALL PT TO SCHEDULE PLEASE FAX ALL PROGRESS NOTES TO [phone] COURTNEY 08/09/2023 09:32:22 AM >PER COSTAL SLEEP PLEASE REQUEST SPLIT NIGHT SLEEP STUDY. PLEASE ALSO INCLUDE DOCTORS NOTES THAT PATIENT IS NON COMPLIANT WITH CPAP AND IS EXPERIENCING DAYTIME SLEEPINESS, SNORING, WITNESSED APNEA Referral Priority Routine REASON FOR VISIT f/up-AWV NEEDED, Please schedule AWV Medications Medication SIG (Take, Route, Frequency, Duration) Notes Start Date End Date Status Meloxicam 7.5 MG 1 tablet Orally Once a day Not-Taking Amlodipine Besylate 10 MG 1 tablet Orall y Once a day Active MetFORMIN HCl ER 500 MG 1 tablet with ev ening meal Orally Once a day 07/02/2021 Active Atorvastatin Calcium 40 MG 1 tablet Orally Once a day Active Lisinopril-Hydrochlorothi azide 20-12.5 MG 1 tablet Orally Once a day for 90 days Active Pantoprazole Sodium 40 MG 1 tablet Orall y Once a day Active Levothyroxine Sodium 100 MCG 1 tablet in the morning on an empty stomach Orally Once a day Active Trulicity 0.75 MG/0.5ML 0.75 mg Subcutan eous once weekly Active Aspirin 81 81 MG 1 tablet Orally Once a day Active Sertraline HCl 100 MG 2 tablets Orally O nce a day Active Social History Tobacco Use: Social History Observation Description Date Details (start date - stop date) Former Smoker NA - NA Tobacco Status: Question Answer Notes Patient is a former smoker Problems Problem Type SNOMED Code ICD Code Onset Dates Problem Status W/U Status Risk Notes Problem [id number] Obstructive sleep apnea (G47.33) Active confirmed Vital Signs Height 60 in 05/18/2023 Weight 145 lbs 05/18/2023 BMI 28.32 kg/m2 05/18/2023 Blood pressure systolic 143 mm Hg 05/18/19 24 Blood pressure diastolic 87 mm Hg 024 Temperature 98.7 degrees Fahrenheit 05/18/19 24 Heart Rate 83 /min 05/18/2023 Respiratory Rate 18 /min 05/18/2023 Oximetry 96 05/18/2023 Encounters Encounter Location Date Provider Diagnosis [id number] [facility] [address] [id number] 05/18/2023 WHIT LOMBARDI Type 2 diabetes mellitus without complication, without long-term current use of insulin E11.9 ; Obstructive sleep apnea G47.33 ; Primary hypertension I10 ; Hypothyroidism, unspecified type E03.9 ; Hyperlipidemia, unspecified hyperlipidemia type E78.5 and Depression, unspecified depression type F32.A Assessments Encounter Date Diagnosis (ICD Code) Assessment Notes Treatment Notes Treatment Clinical Notes Section Notes 05/18/2023 Type 2 diabetes mellitus without complication, without long-term current use of insulin (ICD-10 - E11.9) Well controlled on current medication 05/18/2023 Obstructive sleep apnea (ICD-10 - G47.33) Patient would like inspire device Will refer to sleep Medicine to discuss options 05/18/2023 Primary hypertension (ICD-10 - I10) well controlled on current medication 05/18/2023 Hypothyroidism, unspecified type (ICD-10 - E03.9) Well controlled on medication does not need refills Recent labs in 05/18/2023 Hyperlipidemia, unspecified hyperlipidemia type (ICD-10 - E78.5) Continue current medication 05/18/2023 Depression, unspecified depression type (ICD-10 - F32.A) No acute concerns, no SI HI or audiovisual hallucination Plan Of Treatment Treatment Notes Assessment Notes Type 2 diabetes mellitus wit hout complication, without long-term current use of insulin Well controlled on current medication Obstructive sleep apnea Patient would like inspire device Will refer to sleep Medicine to discuss options Primary hypertension well controlled on current medication Hypothyroidism, unspecified type Well controlled on medication does not need refills Recent labs in March Hyperlipidemia, unspecified hyperlipidemia type Continue current medication Depression, unspecified depression type No acute concerns, no SI HI or audiovisual hallucination Referrals Referral Date Details 05/18/2023 05/18/2023, Patient requesting inspire implantable device Has been seen by [facility] sleep lab please eval and tx Patient non compliant with cpap, [facility] Next Appt Details Follow Up: 6 Weeks, Reason: BRE Procedure Notes * Category Sub-Category Detail Notes Supervision of Care Supervising Provider I have discussed this case with the resident and participated in the development of the care plan. I have reviewed the above documentation and agree with the assessment and plan. SG Progress Notes * LORENEGINARaginiDOB: [birth year] (67 yo F)Acc No.[id number]:05/18/2023 PROGRESS NOTE Patient: Ragini CASTILLO External Appointment Provider: Sharla LOMBARDI MD :1955 A ge:67 Y S ex:Female Supervising Provider:JOSE RAUL GOODMAN MD Date:05/18/2023 C HN#:[id number] Address:[address] [place], [place] [id number] Pcp:JIM MONIQUE Subjective: * Chief Complaints: * 1 . f/up-AWV NEEDED. 2. Please schedule AWV. * HPI: F irst Point of Contact Screening: Do any of the following apply to you? N ew rash or open sores N o F ever and/or chills in the past 7 days N o C ough N o M uscle or body aches (other than from an injury) N o S ore throat N o I n the past 3 weeks, have you or a close contact traveled outside the [facility] and you are now ill? N o O FFICE USE (If universal masking is not in place, provide patients age 2 years and older with a facemask to wear over their mouth and nose while in the practice.): P atient answered no to all questions OR only answered yes to question 1 P atient History: Patient presents to the clinic with main concerns regarding wanting to have referral sent to sleep study for inspire implantable device for her obstructive sleep apnea. Patient has primary care in [place] who has been working up patient's dizziness. Patient reports that she has history of obstructive sleep apnea but does not want to wear CPAP, and h as not been wearing a CPAP for the last 1 year. Has no other acute concerns or complaints. Denies any chest pain, palpitations, shortness for breath or vision changes. * ROS: 1 0 point ROS was obtained and is negative aside from what is listed above. * Medical History: T ype 2 diabetes, Depression, Arthritis, HTN, Hypercholesterolemia. * Surgical History: C -section x 4 , Bladder netting . * Hospitalization/Major Diagno stic Procedure: A sathish , Collapsed lung 1976. * Family History: M other: , diagnosed with Diabetes. F ather: , Bladder cancer, Heart disease, [place] in the 40s. Mother had CHF, Father from [facility]. * Social History: A lcohol Use Patient d oes not use alcohol T obacco Status Patient is a former smoker Quit in: 2 000 number of years 3 0 packs per day 1 M arital Status: Legally . L brenda with: alone. I llicit Drug Use Patient/Family reports: N o illicit drug use A mbulatory Status : i s independent C affeine: per day, coffee. * Medications: T aking Amlodipine Besylate 10 MG Tablet 1 tablet Orally Once a day , Taking Aspirin 81 81 MG Tablet Chewable 1 tablet Orally Once a day , Taking Atorvastatin Calcium 40 MG Tablet 1 tablet Orally Once a day , Taking Levothyroxine Sodium 100 MCG Tablet 1 tablet in the morning on an empty stomach Orally Once a day , Taking Lisinopril-Hydrochlorothiazide 20-12.5 MG Tablet 1 tablet Orally Once a day , Taking MetFORMIN HCl ER 500 MG Tablet Extended Release 24 Hour 1 tablet with evening meal Orally Once a day , Taking Pantoprazole Sodium 40 MG Tablet Delayed Release 1 tablet Orally Once a day , Taking Sertraline HCl 100 MG Tablet 2 tablets Orally Once a day , Taking Trulicity 0.75 MG/0.5ML Solution Pen-injector 0.75 mg Subcutaneous once weekly , Not-Taking Meloxicam 7.5 MG Tablet 1 tablet Orally Once a day , Medication List reviewed and reconciled with the patient * Allergies: N .K.A. Objective: * Vitals: H t: 60 in, Ht-cm: 152.4 cm, Wt: 145 lbs, Wt-k.77 kg, BMI:28.32, Weight Change: -3 lbs, Body Surface Area: 1.67, BP:143/87, Temp:98.7F, HR:83, Respiratory Rate:18, Oxygen sat %:96. * Examination: G eneral Examination: Constitutional: No acute distress, well nourished, well groomed. Derm/Integumentary: Skin warm and dry, no apparent rashes. HEENT: N ormocephalic, atraumatic. EOMI intact. No scleral icterus or conjunctival erythema. Hearing is grossly normal, nose normal. Neck: N ormal ROM. Respiratory: clear to auscultation, good air entry bilaterally. Heart: regular rate and rhythm, Normal heart sounds,.? Chest: no tenderness on chest wall. Gastrointestinal: soft, NT/ND, BS present. Musculoskeletal: Full ROM. Neurology: Alert and Oriented x3. CN's II-XII grossly intact.. Psych: Appropriate mood and affect. Insight and judgement normal. . Assessment: * Assessment: 1. O bstructive sleep apnea - G47.33 (Primary) 2 . T ype 2 diabetes mellitus without complication, without long-term current use of insulin - E11.9 3 . P rimary hypertension - I10 4. H ypothyroidism, unspecified type - E03.9 5 . H yperlipidemia, unspecified hyperlipidemia type - E78.5 6 . D epression, unspecified depression type - F32.A Plan: * Treatment: 2. T ype 2 diabetes mellitus without complication, without long-term current use of insulin Notes: Well controlled on current medication 3. P rimary hypertension Notes: well controlled on current medication 4. H ypothyroidism, unspecified type Notes: Well controlled on medication does not need refills Recent labs in March 5. H yperlipidemia, unspecified hyperlipidemia type Notes: Continue current medication 6. D epression, unspecified depression type Notes: No acute concerns, no SI HI or audiovisual hallucination * Procedures: S upervision of Care: Supervising Provider I have discussed this case with the resident and participated in the development of the care plan. I have reviewed the above documentation and agree with the assessment and plan. SG. * Immunizations: Immunization record has been reviewed and updated. * Preventive Medicine: Quality Measures: W eight Assessment Above Normal BMI Follow-Up W eight monitoring * Follow Up: 6 Weeks (Reason: BRE) * Care Plan Details* Review Notes: JOSE RAUL GOODMAN 2023-05-19 15:04:28* Sign off status: Completed true * Appointment Provider: Sharla LOMBARDI MD Date: 0 05/18/2023 Generated for Key freeman/Minesh/Kristiitting on: 0 10/30/2024 03:29 PM EDT History and Physical Notes * HPI (History of Present Illness) Category Sub-Category Detail Notes Category Not es Patient History Patient pres ents to the clinic with main concerns regarding wanting to have referral sent to sleep study for inspire implantable device for her obstructive sleep apnea. Patient has primary care in [place] who has been working up patient's dizziness. Patient reports that she has history of obstructive sleep apnea but does not want to wear CPAP, and has not been wearing a CPAP for the last 1 year. Has no other acute concerns or complaints. Denies any chest pain, palpitations, shortness for breath or vision changes. First Point of Contact Screening Do any of the following apply to you? New rash or open sores: No Fever and/or chills in the past 7 days: No Cough: No Muscle or body aches (other than from an injury): No Sore throat: No In the past 3 weeks, have yo u or a close contact traveled outside the [place] and you are now ill? : No OFFICE USE (If [employer] is not in place, provide patients age 2 years and older with a facemask to wear over their mouth and nose while in the practice.):: Patient answered no to all questions OR only answered yes to question 1 Examination Category Sub-Category Detail Notes Category Not es General Examination HEENT: Normocephali c, atraumatic. EOMI intact. No scleral icterus or conjunctival erythema. Hearing is grossly normal, nose normal Neck: Normal ROM Heart: regular rate and rhy thm, Normal heart sounds, Respiratory: clear to auscultatio n, good air entry bilaterally Gastrointestinal: soft, NT/ND, BS pres ent Constitutional: No acute distress, w ell nourished, well groomed Derm/Integumentary: Skin warm and dry, n o apparent rashes Neurology: Alert and Oriented x 3. CN's II-XII grossly intact. Chest: no tenderness on julio c st wall Musculoskeletal: Full ROM Psych: Appropriate mood and affect. Insight and judgement normal. Consultation Request Notes Referral Date Referring Provider Referred Provider Not es 05/18/[address] [facility] Patient requesting inspire implantable device Has been seen by [facility] sleep [facility] please eval and tx Patient non compliant with cpap
--- NOTE | 2024-10-30 15:08 | A.OFFVIS_ITS ---
Vital Signs 10/30/24 15:20 Height 5 ft Weight 142 lb BMI 27.7 BP 108/58 L Blood Pressure Location Rt brachial Position Sitting Pulse 90 Pulse Source Pulse Oximeter Pulse Oximetry (%) 96 Oxygen Delivery Method Room Air Intake Visit Reasons: s/p double Vinnie Intake Note: Est pt for mgmt of chronic abd pain. S/P FUV. CC; C.O. GERD excerbation mgmt. Pt has not had her nexium Rx and has been purchasing OTC Prilosec to attempt to manage sx in the interim. Pt also to review procedure results. No other changes or concerns at this time. Cellular Equipment Installer Required: No Accompanied by: Self / Same As Patient Allergies citalopram (From CELEXA) Allergy (Unknown, Verified 10/30/24 15:23) RASH HPI HPI s/p double Vinnie: Details: LAST VISIT GERD (gastroesophageal reflux disease) Postprandial abdominal bloating Constipation Abdominal pain Postprandial epigastric pain Plan Patient can start taking senna daily. Continue taking fiber supplement and increase fluid intake and activity to promote better bowel motility. Patient can continue taking Nexium and famotidine. Avoid dietary triggers and late night snacking. Staying upright for minimum 3 hours after meals discussed with valeria groves. Patient will go for upper endoscopy and colonoscopy. I will see her after the procedure. Patient denies any cardiac or respiratory symptoms. No issues with anesthesia in the past. Patient is on low-dose aspirin. No history of sleep apnea. Discussed with patient the importance of good bowel prep day before procedure. Stressed the importance of clear liquid diet and finishing all of her prep in order for her to have a good outcome. I will see patient after the procedure, sooner on as needed basis. She is agreeable to this plan and verbalizes understanding of instructions. She was given the opportunity to ask questions and all questions answered. ? Thank you for allowing me to participate in her care New sennosides (Natural Senna Laxative) 17.2 mg (2 x 8.6 mg) PO BEDTIME 180 tabs 3RF constipation K59.00 bisacodyl (Dulcolax (bisacodyl)) take 4 tabs at noon the day before your colonoscopy 20 mg (4 x 5 mg) PO ONCE 4 tabs 0RF 1 day Z12.11 polyethylene glycol 3350 (Miralax) As directed by gastroenterology department at [facility] 238 grams PO ONCE 238 grams 0RF Z12.11 Refilled famotidine (Pepcid) 20 mg PO BEDTIME 90 tabs 3RF K21.9 esomeprazole magnesium (Nexium) 40 mg PO DAILY 90 caps 5RF K21.9 Discontinued bisacodyl Discontinued Reason: Doctor's Order 10 mg (2 x 5 mg) PO BEDTIME 60 tabs 4RF UPPER ENDOSCOPY AND COLONOSCOPY EGD Findings:? * Esophagus:? Normal esophageal mucosa was noted. The Z-line was at 36 cm. * Stomach:? Erythema and erosions in the antrum. Retroflexion was performed in the cardia. Random cold forceps biopsies were taken from the stomach. * Duodenum:? Mild erythema and edema in duodenal bulb. Cold forceps biopsies were taken from the duodenal bulb and 2nd portion of the duodenum to rule out celiac sprue. Colonoscopy Procedure:? The patient was then turned for the colonoscopy. A digital rectal exam was performed which was abnormal for external hemorrhoids.? A distal attachment cap was affixed to the tip of the scope and the colonoscope was then inserted through the anus and advanced through the colon and advanced to the cecum at 80 cm and terminal ileum.? Appendiceal orifice and ileocecal valve were identified. Mucosa was carefully examined under high definition white light as the instrument was slowly withdrawn in a retrograde panoramic fashion. Retroflexion was performed in rectum. The procedure was not difficult. The quality of the prep was BBPS: 2+2+2 = adequate Withdrawal time 11 minutes Limitations: No limitations Findings: Mucosa: Normal colon and terminal ileum mucosa. Protruding lesions: * One sessile polyp of size 2 mm in transverse colon. Cold forceps polypectomy was performed. The polyp was completely removed and retrieved. * One sessile polyp of size 6 mm in transverse colon. Cold snare polypectomy was performed. The polyp was completely removed and retrieved. * One sessile polyp of size 4 mm in sigmoid colon. Cold snare polypectomy was performed. The polyp was completely removed but not retrieved. * Large internal hemorrhoids without stigmata of recent bleeding. Impression: 1. Normal esophagus 2. Gastritis (biopsy) 3. Duodenitis (biopsy) 4. Normal colon and terminal ileum mucosa 5. Total 3 polyps removed (2 retrieved) 6. Internal and external hemorrhoids Recommendations:?? * Follow-up path results * Avoid NSAIDs * H Pylori treatment if biopsies + * Continue esomeprazole * Repeat colonoscopy in 5 years. PATHOLOGY RESULTS Diagnosis A. Duodenum, biopsy: Duodenal mucosa within normal limits; preserved villous architecture and no increase in intraepithelial lymphocytes; negative for gastric foveolar metaplas ia/dysplasia. B. Stomach, random, biopsy: Gastric antral mucosa with mild chronic gastritis; negative for H pylori/ intestinal metaplasia/dysplasia. C. Colon, transverse, polyp: Hyperplastic polyp; negative for dysplasia. D. Colon, ascending, polyp: Tubular adenoma; negative for high-grade dysplasia TODAY'S VISIT Patient is here today for follow-up and to discuss upper endoscopy and colonoscopy results. Patient denies any ill effects from the prep, anesthesia or procedure itself. Negative H pylori. One hyperplastic polyp in transverse colon and 1 tubular adenoma in ascending colon without high-grade dysplasia or carcinoma. Patient reports that her symptoms of acid reflux are suppressed currently as she is purchasing [id number] Prilosec. Patient change her work of employment and currently is working 2 to 3 times a week in [place] and is requesting to send a prescription there. Patient denies dyspepsia, dysphagia or odynophagia. Denies any melena, hematochezia, unintentional weight loss or ribbon like stools. Patient reports that she is moving her bowels better now that she is taking Senokot. Takes Senokot as needed. [facility] Medical History (Updated 10/31/24 @ 20:48 by KACIE Franco) GERD (gastroesophageal reflux disease) Tubular adenoma COVID-19 Vitamin D deficiency Uterine fibroid Urinary incontinence Tobacco abuse Severe obstructive sleep apnea-hypopnea syndrome Sleep apnea RBBB Osteoporosis Obesity Nephrolithiasis LVH (left ventricular hypertrophy) Microscopic hematuria Depression IBS (irritable bowel syndrome) IPMN (intraductal papillary mucinous neoplasm) Thyroid disease Hypersomnia Hyperaldosteronism Fatty liver Disorder of iron metabolism GERD (gastroesophageal reflux disease) Anemia Abnormal liver function Hypothyroidism (acquired) Hyperlipidemia HTN (hypertension) Diabetes mellitus Surgical History History of esophagogastroduodenoscopy (EGD) H/O section H/O colonoscopy Family History Father Bladder cancer Social History Alcohol intake: never Patient Tobacco Use Status: Former Tobacco user Second Hand Smoke Exposure: No Review of Systems Const Denies weight gain and Denies weight loss ENT Reports no additional complaints, Denies dysphagia and Denies odynophagia Card Reports no additional complaints Resp Reports no additional complaints GI Reports abdominal pain (Occasional cramping), Denies belching, Denies melena, Reports bloating (Occasional), Denies change in bowel habits, Reports constipation (Improved), Denies dysphagia, Denies excessive flatus, Denies dyspepsia, Denies heartburn, Denies diarrhea, Reports loose stools, Reports nausea, Denies odynophagia and Denies vomiting Reports no additional complaints Musc Reports no additional complaints Neuro Reports no additional complaints Psych Reports no additional complaints Endo Reports no additional complaints Physical Exam Vital Signs: Last Vital Signs Pulse 90 10/30/24 15:20 BP 108/58 L 10/30/24 15:20 Pulse Ox 96 10/30/24 15:20 Oxygen Delivery Method Room Air 10/30/24 15:20 BMI result Body Mass Index 27.7 Const General: healthy appearing, no acute distress and well developed Nutritional Appearance: well nourished Orientation/consciousness: patient oriented x3 Resp Effort & Inspection: normal respiratory effort, able to speak in complete sentences, no tracheal deviation and symmetric chest movement Auscultation: clear to auscultation bilaterally Cardio Rate: regular rate GI Inspection: Yes normal to inspection and No distended Palpation (GI): Soft to palpation, not firm, nontender and No hepatosplenomegaly present Auscultation: normal bowel sounds General: Yes no CVA tenderness Back/Spine/Pelvis Back: no CVA tenderness Skin General skin exam: elasticity normal, turgor normal and dry skin Neuro General: patient oriented x3 Psych Appearance: grossly normal Mental Status: mental status grossly normal Assessment & Plan Assessment & Plan (1) Tubular adenoma: Code(s): D36.9 - Benign neoplasm, unspecified site Category: Medical (2) Gastroesophageal reflux disease: Code(s): K21.9 - Gastro-esophageal reflux disease without esophagitis Category: Medical Qualifiers: Esophagitis presence: esophagitis presence not specified Qualified Code(s): K21.9 - Gastro-esophageal reflux disease without esophagitis (3) Postprandial abdominal bloating: Code(s): R14.0 - Abdominal distension (gaseous) (4) Constipation: Code(s): K59.00 - Constipation, unspecified Qualifiers: Constipation type: slow transit constipation Qualified Code(s): K59.01 - Slow transit constipation (5) Abdominal pain: Code(s): R10.9 - Unspecified abdominal pain Qualifiers: Abdominal location: generalized Qualified Code(s): R10.84 - Generalized abdominal pain (6) Postprandial epigastric pain: Code(s): R10.13 - Epigastric pain (7) Status post colonoscopy: Code(s): Z98.890 - Other specified postprocedural states Plan Patient will continue taking omeprazole daily. Patient may take famotidine at bedtime. Avoid dietary triggers and late night snacking. Staying upright for minimum 3 hours after meals discussed with patient. Patient can take MiraLax daily and senna if needed when no bowel movement. Increase fluid intake and activity to promote better bowel motility. Patient will follow-up in 6 months, sooner on as needed basis. Patient is agreeable to this plan and verbalizes understanding of instructions. She was given the opportunity to ask questions and all questions answered. Thank you for allowing me to participate in her care Medications: New esomeprazole magnesium (Nexium) 40 mg PO DAILY 90 caps 2RF K21.9 - Gastro- esophageal reflux disease without esophagitis polyethylene glycol 3350 (Miralax) 17 grams PO DAILY 510 grams 2RF esomeprazole magnesium (Nexium) 40 mg PO BID 60 caps 2RF K21.9 - Gastro- esophageal reflux disease without esophagitis Refilled famotidine (Pepcid) 20 mg PO BEDTIME 90 tabs 3RF K21.9 - Gastro-esophageal reflux disease without esophagitis Coding Level of Care Code Est Pt Level 4 (68507) Complex EM visit Add On G2211 Diagnoses Tubular adenoma D36.9 Gastroesophageal reflux disease, unspecified whether esophagitis present K21.9 Esophagitis presence: esophagitis presence not specified Postprandial abdominal bloating R14.0 Slow transit constipation K59.01 Constipation type: slow transit constipation Generalized abdominal pain R10.84 Abdominal location: generalized Postprandial epigastric pain R10.13 Status post colonoscopy Z98.890 Time Spent (min) 35 Comment 25 minutes spent with patient and additional 10 minutes spent reviewing her records
[2024-10-30 15:20] VITALS: BP 108/58; PULSE 90; O2SAT 96; BMI 27.7
--- OUTSIDE RECORDS SUMMARY | 2024-10-30 15:30 | XMS_ITS | Data Portability ---
Author Organization [place] - [facility], Allergy Address [address] [address] Care Team Providers Care Ui Ux Developer Name Role Phone SNADRA CHATTERJEE Primary Care Provider Assessment Encounter Date Assessment Date Assessment LastModified by Organization Details LastModified Time 02/21/2024 02/21/2024 Patient with severe obstructive sleep apnea intolerant to CPAP. We discussed options of a mandibular appliance or the inspire procedure. She is heading to [place] for the winter next week. She can try to work with her dentist for a mandibular appliance to try through the winter and then I will arrange for her to see Dr. Kohler upon her return to discuss the inspire procedure willie Not available 02/21/2024 13:42:39 Plan of Treatment Reminders Order Date Submit Date Provider Last Modified By Organization Details Last Modified Time Details Appointments None record ed. Lab None record ed. Referral None record ed. Procedures None record ed. Surgeries None record ed. Imaging None record ed. Medication Orders None record ed. Patient TargetsNo targets recorded. Patient InstructionsNo instructions recorded. Reason for Referral None Reported. Results Created Date Observation Date Name Description Value Unit Range Abnormal Flag Note LastModifiedBy Organization Detail LastModifiedTime 02/21/20 24 11/14/2023 sleep study , diagn ostic (PROC ) No observ ation record ed. [email or web address] Not Available 17:00:25 Result Notes None recorded. Problems Name Problem SNOMED Code Status Onset Date Resolution Date Notes Provider Name and Address Organization Details Recorded Time Obstructiv e sleep apnea syndrome 81701162 Active 09/15/ 2021 Obstructiv e sleep apnea (adult) (pediatric ); Note: Date Diagnosed: 01/08/2021 10:12 AM (G47.33) Not Available [facility] 03:32:11 Chronic fatigue syndrome 77179960 Active 2023 BUD GOLDBERG MD [address] [facility],[place] [address], [place], [address] , [facility] 13:41:55 Problem Notes None recorded. Procedures Surgical History Date Name Laterality Status Provider Name and Address Organization Details Recorded Time 08/21/2024 FOL_DP cancelled JENNIFER KOHLER MD [address] [facility], [place], [address], [facility] 08/04/2024 09:39:10 Imaging Results None recorded. Procedure Notes None recorded. Medical Equipment None Reported. Allergies No known drug allergies Medications Name Sig Start Date Stop Date Status Note LastModified by Organization Details LastModified Time amoxicill in 500 mg capsule TAKE 1 CAPSULE BY MOUTH THREE TIMES DAILY active Not Available Not Available No t Available pioglitaz one 15 mg tablet TAKE 1 TABLET BY MOUTH ONCE DAILY active Not Available Not Available No t Available atorvasta tin 40 mg tablet TAKE 1 TABLET BY MOUTH ONCE DAILY active Not Available Not Available No t Available metformin 500 mg tablet TAKE 1 TABLET BY MOUTH TWICE DAILY active Not Available Not Available No t Available tizanidin e 2 mg tablet TAKE 1 TABLET BY MOUTH EVERY 8 HOURS NEEDED FOR MUSCLE SPASM. CAUTION SEDATING , DONT DRIVE AFTER TAKING. 02/20 completed Not Available Not Available Not Available lisinopri l 20 mg-hydroc hlorothia zide 12.5 mg tablet 02/20 completed Medicati on ID: [id number] B rand Name: lisinopr il-hydro chloroth iazide S end Method: E-Prescr ibed Sub s Allowed: subs OK Medic ationGen ericName : lisinopr il-hydro chloroth iazide Not Available Not Available Not Available hydrocodo ne 5 mg-acetam inophen 325 mg tablet TAKE 1 TABLET BY MOUTH EVERY 6 HOURS NEEDED FOR SEVERE PAIN 02/20 completed Not Available Not Available Not Available sucralfat e 1 gram tablet TAKE 1 TABLET BY MOUTH TWICE DAILY 02/20 completed Not Available Not Available Not Available sertralin e 100 mg tablet TAKE 1 & 1/2 (ONE & ONE-HALF ) TABLETS BY MOUTH ONCE DAILY active Not Available Not Available No t Available amlodipin e 5 mg tablet TAKE 1 TABLET BY MOUTH ONCE DAILY 02/20 completed Not Available Not Available Not Available levothyro xine 75 mcg tablet TAKE 1 TABLET BY MOUTH ONCE DAILY active Not Available Not Available No t Available levothyro xine 88 mcg tablet TAKE 1 TABLET BY MOUTH ONCE DAILY 02/20 completed Not Available Not Available Not Available famotidin e 20 mg tablet TAKE 1 TABLET BY MOUTH AT BEDTIME active Not Available Not Available No t Available famciclov ir 500 mg tablet TAKE 1 TABLET BY MOUTH EVERY 8 HOURS FOR 7 DAYS 02/20 completed Not Available Not Available Not Available amlodipin e 10 mg tablet TAKE 1 TABLET BY MOUTH ONCE DAILY active Not Available Not Available No t Available pantopraz ole 40 mg tablet,de layed release TAKE 1 TABLET BY MOUTH ONCE DAILY active Not Available Not Available No t Available esomepraz ole magnesium 40 mg capsule,d elayed release TAKE 1 CAPSULE BY MOUTH ONCE DAILY active Not Available Not Available No t Available Citrucel 500 mg tablet TAKE 1 TABLET BY MOUTH ONCE DAILY active Not Available Not Available No t Available bisacodyl 5 mg tablet,de layed release TAKE 2 TABLETS BY MOUTH AT BEDTIME active Not Available Not Available No t Available gabapenti n 100 mg capsule TAKE 1 CAPSULE BY MOUTH THREE TIMES DAILY 02/20 completed Not Available Not Available Not Available lisinopri l 40 mg tablet TAKE 1 TABLET BY MOUTH ONCE DAILY active Not Available Not Available No t Available sertralin e 50 mg tablet TAKE 1 TABLET BY MOUTH ONCE DAILY 02/20 completed Not Available Not Available Not Available glipizide 2.5 mg-metfor min 500 mg tablet 02/20 completed Medicati on ID: [id number] B rand Name: glipizid e-metfor min Send Method: E-Prescr ibed Sub s Allowed: subs OK Speci al Instruct ion: TAKE 1 TABLET BY MOUTH TWICE DAILY WITH MEALS Me dication GenericN tori: glipizid e-metfor min Not Available Not Available Not Available Restasis 0.05 % eye drops in a dropperet te INSTILL 1 DROP INTO EACH EYE TWICE DAILY active Not Available Not Available No t Available nitrofura ntoin monohydra te/macroc rystals 100 mg capsule TAKE 1 CAPSULE BY MOUTH TWICE A DAY FOR 7 DAYS 02/20 completed Not Available Not Available Not Available cholecalc iferol (vitamin D3) 50 mcg (2,000 unit) capsule TAKE 1 CAPSULE BY MOUTH ONCE DAILY active Not Available Not Available No t Available Urszula-ed 8.6 mg tablet TAKE 2 TABLETS BY MOUTH AT BEDTIME FOR CONSTIPA TION active Not Available Not Available No t Available Trulicity 1.5 mg/0.5 mL subcutane ous pen injector INJECT 1 PEN SUBCUTAN EOUSLY ONCE A WEEK 02/20 completed Not Available Not Available Not Available Trulicity 0.75 mg/0.5 mL subcutane ous pen injector INJECT 0.75 MG SUBCUTAN EOUSLY ONCE WEEKLY 02/20 completed Not Available Not Available Not Available Paxlovid 300 mg (150 mg x 2)-100 mg tablets in a dose pack TAKE 3 TABLETS TOGETHER (TWO 150 MG NIRMATRE LVIR TABLETS AND ONE 100 MG RITONAVI R TABLET) BY MOUTH TWICE DAILY FOR 5 DAYS. 02/20 completed Not Available Not Available Not Available Vitals Date Recorded Body height Body mass index (BMI) Body weight Provider Name and Address Organization Details Last Updated DateTime 02/21/2024 152.4 cm 25.4 kg/m2 10469.01 g Jocelynn Carver [place] - [facility] 02/21/2024 13:17:43 Social History None recorded. Functional Status None recorded. Mental Status None recorded. Family History Nothing Reported. Medical History No medical history recorded. Gynecological HistoryNo gynecological history recorded. Obstetrics History GPAL:G 0 P 0 0 0 0 Past Encounters Encounter ID Performer Location Encounter Start Date Encounter Closed Date Diagnosis/Indication Diagnosis SNOMED-CT Code Diagnosis ICD10 Code Diagnosis Note [id number] BUD GOLDBERG MD [facility] [address] [address] 02/21/2024 12:58:02 02/21/2024 13:44:10 Obstructive sleep apnea syndrome 02497606 G47.33 Chronic fa tigue syndrome 48176566 R53.82 Health Concerns Section Related Observation LastModified by Organization Detai ls LastModified Time None Recorded Concern Status LastModified by Organization Details LastModified Time None Recorded Advance Directives Directive None Recorded Payers Insurance Date Sequence Insurance Name Policy Number Policy Moore Covered Member ID Moore Member ID Guarantor Name 02/21/2024 1 MEDICARE B-[place]: [employer] Ragini Mariee [id number] Ragini Uslida 02/21/2024 2 [facility] [id number] Ragini Mariee [id number] Ragini Mariee Notes Date Note Type Note Provider Name and Address Organization Details Recorded Time 02/21/2024 text/html Previously seen in 2020 for severe BRE. Unable to tolerate CPAP. History of chronic fatigue syndrome, depression, reflux, hypertension and allergy. Most recent polysomnogram in October showed an overall AHI of 25.2 with a REM AHI of 34.8 lowest oxygen saturation was 79.4% BUD PIERCE MD [address] [place] [address], [phone], [facility] - [facility] 02/21/2024 13:43:00 OBGyn Episode No OBEpisode recorded.
--- OUTSIDE RECORDS SUMMARY | 2024-10-30 15:30 | XMS_ITS | Patient Health Record ---
[facility] Address [address] [place] [address] Care Team Providers Care Exploitation Analyst Name Role Phone Malini AMAYA, Esthela Primary Care Provider Genia Hernandez Unavailable [phone] Allergies Allergen (clinical drug ingredient) Drug/Non Drug Allergy documented on EMR Reaction Allergy Type Onset Date Status citalopram Celexa rash Drug Allergy Active Reason For Referral No Information Medications Medication SIG (Take, Route, Frequency, Duration) Notes Start Date End Date Status Pantoprazole Sodium Active Lisinopril Active Levothyroxine Sodium Active Pravastatin Sodium A ctive Sertraline HCl Activ e Spironolactone Not-T aking Aspirin Active metFORMIN HCl Active Immunizations Vaccine Route Administration Date Status Comme nts Influenza Unknown 02/04/2017 Administered Social History Tobacco Use: Social History Observation Description Date Details (start date - stop date) Former Smoker NA - NA Tobacco Use/Smoking Question Answer Notes Are you a: former smoker When did you stop smoking? 1999 Additional Findings: Tobacco Non-User Current no n-smoker Alcohol Screen Question Answer Notes Did you have a drink containing alcohol in the p ast year? No Points 0 Interpretation Negative Tobacco use other than smoking: Question Answer Notes Are you an other tobacco user? No Problems Problem Type SNOMED Code ICD Code Onset Dates Problem Status W/U Status Risk Notes Problem Type 2 diabetes mellitus with polyneuropathy (E11.42) Active confirmed Plan Of Treatment No Information Insurance Providers Payer Name Payer Address Payer Phone Subscriber Number Group Number Insured Name Patient Relationship to Insured Coverage Start Date Coverage End Date [facility] [address] [place] [address] [id number] Ragini Tol[place] Self - patient is the insured Medical (General) History Medical History History ICD Code Back,Hip,and Knee pain Depression type II diabetes High blood pressure Sciatica Thyroid disorder Measles Mumps Chicken pox Surgical History Surgery Date(Month/Year) section 1979,[id number], 1985,198 7 uterine sling
--- OUTSIDE RECORDS SUMMARY | 2024-10-30 15:30 | XMS_ITS | Referral Summary ---
Author Organization [facility] Address [address] [place] [address] Care Team Providers Care Front Desk Admin Name Role Phone Esthela Nayak Primary Care Provider [phone] Allergies Active Allergy Reactions Criticality Noted Date Comments Citalopram Rash 12/16/2022 Medications aspirin 81 mg EC tablet Take 81 mg by mouth once a day. 03/27/2022 Active atorvastatin (LIPITOR) 40 mg tablet Take 40 mg by mouth once a day. 07/01/2022 Active Trulicity 0.75 mg/0.5 mL injection dose Inject 0.75 mg under the skin once a week. Active levothyroxine (SYNTHROID, LEVOTHROID) 100 mcg tablet Take 88 mcg by mouth daily. Active metFORMIN (GLUCOPHAGE) 500 mg tablet Take 500 mg by mouth 2 times a day with meals. Active pantoprazole DR (PROTONIX) 40 mg tablet Take 40 mg by mouth once a day. Active sertraline (ZOLOFT) 100 mg tablet Take 100 mg by mouth once a day. 07/01/2022 Active cyanocobalamin (vitamin B-12) 1,000 mcg tablet Take 1,000 mcg by mouth once a day. Active ibuprofen (MOTRIN) 200 mg tablet Take 200 mg by mouth every 6 hours as needed for pain. Active lisinopriL (PRINIVIL,ZESTR IL) 40 mg tablet Take 40 mg by mouth once a day. 01/04/2023 Active omeprazole (PriLOSEC) 40 mg capsule Take 1 capsule (40 mg total) by mouth once a day. 90 capsule 2 01/14/2023 Active Social History Tobacco Use Types Packs/Day Years Used Date Smoking Tobacco: Former Cigarettes 30 1 970 - 1999 Smokeless Tobacco: Never Tobacco Cessation:Counseling Given: Not Answered Alcohol Use Standard Drinks/Week Comments Not Currently 0 (1 standard drink = 0.6 oz pur e alcohol) Comments No Sex and Gender Information Value Date Recorded Sex Assigned at Female 12/30/2022 9:45 AM EDT Legal Sex Female 8:56 AM EDT Gender Identity Female 12/30/2022 9:45 AM EDT Sexual Orientation Straight 12/30/2022 9: 45 AM EDT Last Filed Vital Signs Vital Sign Reading Time Taken Comments Blood Pressure 147/116 01/14/2023 10:17 AM EDT Pulse 70 01/14/2023 10:17 AM EDT Temperature 36 C (96.8 F) 01/14/2023 9:05 AM EDT Respiratory Rate 20 01/14/2023 10:17 AM EDT Oxygen Saturation 98% 01/14/2023 10:17 AM EDT Inhaled Oxygen Concentration - - Weight 58.3 kg (128 lb 8.5 oz) 01/13/2023 8:18 A M EDT Height 152.4 cm (5') 01/13/2023 8:18 AM EDT Body Mass Index 25.1 01/13/2023 8:18 AM EDT Plan of Treatment Not on file Insurance MEDICARE [facility] Care Teams Front Desk Admin Relationship Specialty Start Date End Date Esthela Nayak [address] [place] [id number] PCP - General Internal Medicine 12/09/22
== END 2024-10-30 15:51 | disposition home or self-care (01) ==
LOC: HO.HGI 15:00
PROVIDERS: PCP Internal Medicine; Visit Provider Nurse Practitioner Family
DX: D36.9 Benign neoplasm, unspecified site (principal); K21.9 Gastro-esophageal reflux disease without esophagitis; R14.0 Abdominal distension (gaseous); K59.01 Slow transit constipation; R10.84 Generalized abdominal pain; R10.13 Epigastric pain; Z98.890 Other specified postprocedural states
CPT/HCPCS: 99214; G2211

== ENCOUNTER → 2024-10-30 14:59 | Outpatient (BNVA) | payer MEDICARE, OTHER, SELFPAY | PROVIDERS: PCP Internal Medicine; Visit Provider Nurse Practitioner Family | DX: K21.9 Gastro-esophageal reflux disease without esophagitis (principal); R10.13 Epigastric pain; R10.84 Generalized abdominal pain; R14.0 Abdominal distension (gaseous); K59.01 Slow transit constipation; D36.9 Benign neoplasm, unspecified site; Z98.890 Other specified postprocedural states | CPT/HCPCS: 99212 ==